=== PATIENT | male | born 1990 | race African-American/Black ===

== ENCOUNTER 2016-12-14 11:44 | Emergency (ER) | payer MEDICAID ==
[2014-05-19 02:38] VITALS: BMI 27.4
[~2016-12-14 11:44] MED LIST: BACTROBAN 22 GM22 GM TOPICAL; CLEOCIN HCL300 MG PO; NORCO 7.5/325 T1 TA1 PO; PERIDEX480 ML MM; [UNRECOGNIZED DRUG - OTHER]; [UNRECOGNIZED DRUG - OTHER]
== END 2016-12-14 16:04 | disposition home or self-care (01) ==
LOC: D.ER 11:44
DX: L02.811 Cutaneous abscess of head [any part, except face] (principal)

== ENCOUNTER 2017-12-19 19:47 | Emergency (ER) | payer SELFPAY ==
[2014-05-19 02:38] VITALS: BMI 27.4
== END 2017-12-19 21:09 | disposition home or self-care (01) ==
LOC: D.ER 19:47
DX: T23.031A Burn of unspecified degree of multiple right fingers (nail), not including thumb, initial encounter (principal); T79.9XXA Unspecified early complication of trauma, initial encounter; X08.8XXA Exposure to other specified smoke, fire and flames, initial encounter; Y93.89 Activity, other specified; Y92.019 Unspecified place in single-family (private) house as the place of occurrence of the external cause; S62.634A Displaced fracture of distal phalanx of right ring finger, initial encounter for closed fracture